=== PATIENT | male | born 1990 | race Caucasian/White ===

== ENCOUNTER 2018-09-20 06:43 | Emergency (ER) | payer BC ==
[~2018-09-20] VITALS: Ht 175.3 cm; Wt 73.6 kg
[2018-09-20 06:50] VITALS: BP 149/75; Ht 175.3 cm; Wt 73.6 kg
[2018-09-20] MEDS ORDERED: BUPRENORPHIN-N1 EACH SL (06:51)
[2018-09-20] MEDS ORDERED: KEFLEX500 MG PO (07:32)
[2018-09-20] MEDS ORDERED: TYLENOL W/CODEI1 TAB PO (07:32)
== END 2018-09-20 08:17 | disposition home or self-care (01) ==
LOC: D.ER 06:43
DX: S61.213A Laceration without foreign body of left middle finger without damage to nail, initial encounter (principal); W29.8XXA Contact with other powered hand tools and household machinery, initial encounter; Y93.89 Activity, other specified; Y92.019 Unspecified place in single-family (private) house as the place of occurrence of the external cause